=== PATIENT | female | born 1950 | race African-American/Black ===

== ENCOUNTER 2023-11-28 05:19 | Emergency (ER) | payer MEDICARE ==
[~2023-11-28] VITALS: Ht 167.6 cm; Wt 77.2 kg
[2023-11-28 05:21] VITALS: PULSE 125
[2023-11-28 05:33] VITALS: BP 145/92; RESP 14; TEMP 98.2; O2SAT 100
[2023-11-28] MEDS: ONDANSETRON 4MG ODT PO ONE (06:26)
[2023-11-28 07:37] LABS: BASOPHILS % 1.2 % (0.0-2.0); DIFFERENTIAL COMMENT 0; EOSINOPHILS % 0.4 % (0.0-5.0); HEMATOCRIT. 35.2 % (36.0-48.0); HEMOGLOBIN. 11.3 g/dL (12.0-16.0); LYMPHOCYTES % 37.8 % (20.0-50.0); MEAN CORPUSCULAR HEMOGLOBIN 24.9 pg (28.0-32.0); MEAN CORPUSCULAR HGB CONC 32.1 g/dL (31.0-37.0); MEAN CORPUSCULAR VOLUME 77.7 fL (81.0-99.0); MONOCYTES % 6.3 % (2.0-8.0); NEUTROPHILS % 54.3 % (40.0-76.0); PLATELET 373 x1000/uL (130-400); RED BLOOD CELL COUNT 4.53 mill/uL (4.2-5.4); RED CELL DISTRIBUTION WIDTH 16.6 % (11.6-14.6); WHITE BLOOD COUNT 6.3 x1000/uL (4.5-11.0)
[2023-11-28 08:22] LABS: ALANINE AMINOTRANSFERASE 12 IU/L (10-49); ALBUMIN 5.4 g/dL (3.2-4.8); ASPARTATE AMINOTRANSFERASE 19 IU/L (<34); BILIRUBIN TOTAL 0.7 mg/dL (0.1-1.0); CALCIUM 10.2 mg/dL (8.7-10.4); CARBON DIOXIDE 25 mEq/L (21-32); CHLORIDE 101 mEq/L (98-107); GLUCOSE 104 mg/dL (70-105); POTASSIUM 3.9 mEq/L (3.5-5.1); PROTEIN TOTAL 8.6 g/dL (6.0-8.3); SODIUM 136 mEq/L (136-145); UREA NITROGEN BLOOD 20 mg/dL (9-23)
== END 2023-11-28 09:24 | disposition home or self-care (01) ==
LOC: ER 05:19
DX: R43.1 Parosmia (principal); D64.9 Anemia, unspecified; I10 Essential (primary) hypertension; E11.9 Type 2 diabetes mellitus without complications; E78.00 Pure hypercholesterolemia, unspecified; Z88.0 Allergy status to penicillin
CPT/HCPCS: 99284; 70450; 80053; 85025; 36415; 70486; Q0162